=== PATIENT | female | born 1980 | race Two or more races ===

== ENCOUNTER 2022-02-03 15:19 | Emergency (ER) | payer OTHER ==
[~2022-02-03] VITALS: Ht 154.9 cm; Wt 67.1 kg
[2022-02-03] MEDS ORDERED: VASOTEC20 M1 PO (15:28)
== END 2022-02-03 18:39 | disposition home or self-care (01) ==
LOC: ER 15:19
DX: U07.1 COVID-19 (principal); A49.3 Mycoplasma infection, unspecified site; I10 Essential (primary) hypertension

== ENCOUNTER 2022-04-19 14:26 | Emergency (ER) | payer OTHER ==
[~2022-04-19] VITALS: Ht 154.9 cm; Wt 66.7 kg
[~2022-04-19 14:26] MED LIST: VASOTEC20 M1 PO
== END 2022-04-19 18:14 | disposition home or self-care (01) ==
LOC: ER 14:26
DX: J06.9 Acute upper respiratory infection, unspecified (principal); Z20.822 Contact with and (suspected) exposure to COVID-19; I10 Essential (primary) hypertension

== ENCOUNTER 2024-01-09 07:59 | Emergency (ER) | payer OTHER ==
[~2024-01-09] VITALS: Ht 154.9 cm; Wt 65.8 kg
[2024-01-09] MEDS ORDERED: DEXAMETHASONE SODIUM PHOSPHATE 4 MG/ML VIAL IM STA (09:09)
[2024-01-09] MEDS ORDERED: AMOX-CLAV 875-1 EAC1 PO (09:21)
[2024-01-09] MEDS ORDERED: MUCINEX DM ER1 EACH PO (09:21)
[2024-01-09] MEDS ORDERED: FLONASE16 GM NASAL (09:21)
== END 2024-01-09 09:27 | disposition home or self-care (01) ==
LOC: ER 08:00
DX: J32.8 Other chronic sinusitis (principal)